=== PATIENT | female | born 1990 | race Caucasian/White ===

== ENCOUNTER 2017-01-26 19:29 | Emergency (ER) ==
[2017-01-26 19:36] VITALS: BMI 54.8
[2017-01-26] MEDS ORDERED: TORADOL IM STA (20:07)
--- NOTE | 2017-01-26 20:39 | ED.PDOC ---
General ED Provider: Dr. KEVIN TSAI Chief Complaint: Abdominal Pain Stated Complaint: Lower abdominal pain for 3-4 days, no nausea or vomiting. no injury. Had c -section in JUNE 2016 Time Seen by Physician: 20:37 Mode of Arrival: Walk-In Information Source: Patient Primary Care Provider: SAGAR BONILLA APRN Nursing and Triage Documentation Reviewed and Agree: Yes Reviewed sepsis parameters & appropriate labs ordered?: Yes System Inflammatory Response Syndrome: Not Applicable Sepsis Protocol: For patient's 13 years and over: Temp is 96.8 and below OR 101 and greater Pulse >90 BPM Resp >20/minute Acutely Altered Mental Status Are patient's symptoms suggestive of a new infection, such as: -Pneumonia -Skin, Soft Tissue -Endocarditis -UTI -Bone, Joint Infection -Implantable Device -Acute Abdominal Infection -Wound Infection -Meningitis -Blood Stream Catheter Infection -Unknown GI Complaint Exam - Abdominal Pain Complaint/Exam Onset: Gradual Symptoms Are: Still present Timing: Constant Initial Severity: Moderate Current Severity: Moderate Location of Pain: Suprapubic Character: Reports: Aching, Throbbing Aggravating: Reports: Movement Alleviating: Reports: None Associated Signs and Symptoms: Denies: Diaphoresis, Fever, Cough, Chest pain, Dizziness, Back pain, Constipation, Blood in stool, Dysuria, Urinary frequency, Decreased urine output, Decreased appetite, Vaginal bleeding, Vaginal discharge , Nausea, Vomiting, Diarrhea, Sore throat, Decreased activity AAA Risk Factors: Reports: None Cardiac Risk Factors: Reports: None Ectopic Risk Factors: Reports: None Ovarian Torsion Risk Factors: Reports: None Surgical Obstruction Risk Factors: Reports: None Related Surgical History: Reports: None Patient Rh Status: Unknown Abdominal Findings: Absent: Pulsatile mass, Abdominal distention, Unequal femoral pulses Differential Diagnoses: UTI, Ovarian Cyst, PID Review of Systems - Review Of Systems Constitutional: Reports: No symptoms Eyes: Reports: No symptoms Ears, Nose, Mouth, Throat: Reports: No symptoms Respiratory: Reports: No symptoms Cardiac: Reports: No symptoms GI: Reports: Abdominal pain : Reports: No symptoms Musculoskeletal: Reports: No symptoms Skin: Reports: No symptoms Neurological: Reports: No symptoms Endocrine: Reports: No symptoms Hematologic/Lymphatic: Reports: No symptoms All Other Systems: Reviewed and Negative Past Medical History - Past Medical History Previously Healthy: Yes Endocrine: Reports: None Cardiovascular: Reports: None, Hypertension Respiratory: Reports: None Hematological: Reports: None Gastrointestinal: Reports: Other (CHRONIC ABDOMINAL PAIN ) Genitourinary: Reports: None Neuro/Psych: Reports: None Musculoskeletal: Reports: None Cancer: Reports: None Last Menstrual Period: 11/15/16 - Surgical History General Surgical History: Reports: Cholecystectomy - Family History Family History: Reports: None - Social History Smoking Status: Current every day smoker, Light tobacco smoker Smoking Cessation Counseling Time: > 3 min - 10 min Hx Substance Use: No Alcohol Screening: Occasionally - Immunizations Tetanus Shot up to Date: No Physical Exam - Physical Exam Appearance: Well-appearing, No pain distress, Well-nourished Eyes: ROBERT, EOMI, Conjunctiva clear ENT: Ears normal, Nose normal, Oropharynx normal Respiratory: Airway patent, Breath sounds clear, Breath sounds equal, Respirations nonlabored Cardiovascular: RRR, Pulses normal, No rub, No murmur GI/: Soft, Nontender, No masses, Bowel sounds normal, No Organomegaly, Tender Musculoskeletal: Normal strength, ROM intact, No edema, No calf tenderness Skin: Warm, Dry, Normal color Neurological: Sensation intact, Motor intact, Reflexes intact, Cranial nerves intact, Alert, Oriented Psychiatric: Affect appropriate, Mood appropriate Critical Care Note - Critical Care Note Total Time (mins): 20 Course - Course Orders, Labs, Meds: Lab Review 01/26/17 01/26/17 19:53 19:53 Urine Color Yellow Urine Clarity Clear Urine pH 6.0 Ur Specific [place] 1.025 Urine Protein Negative Urine Glucose (UA) Negative Urine Ketones Negative Urine Blood Trace-lysed Urine Nitrite Negative Urine Bilirubin Negative Urine Urobilinogen 0.2 Ur Leukocyte Esterase Negative Urine Microscopic RBC 2-5 Urine Microscopic WBC 0-2 Ur Squamous Epith Cells 10-20 Amorphous Sediment Trace Urine Bacteria Trace Urine Mucus 1+ Urine Test Negative Orders Category Date Time Status UA [URINALYSIS C & S IF INDICATED] Stat LAB 01/26/17 19:53 Completed URINE Stat LAB 01/26/17 19:53 Completed Ketorolac Tromethamine [Toradol] MEDS 01/26/17 20:07 Discontinued 30 mg IM ONCE STA CT ABDOMEN/PELVIS WO CONTRAST Stat RADS 01/26/17 20:07 Completed Medications Discontinued Medications Generic Name Dose Route Start Last Admin Trade Name Freq PRN Reason Stop Dose Admin Ketorolac Tromethamine 30 mg 01/26/17 20:07 01/26/17 20:18 Toradol IM 01/26/17 20:08 30 mg ONCE STA Administration Vital Signs: Temp Pulse Resp BP Pulse Ox 01/26/17 21:15 84 124/94 H 97 01/26/17 21:04 97.9 F 89 20 121/74 97 01/26/17 19:30 99.6 F 100 H 24 172/113 H 97 Departure - Departure Time of Disposition: 07:40 Disposition: HOME SELF-CARE Discharge Problem: Abdominal pain Instructions: Abdominal Pain (ED) Condition: Good Pt referred to PMD for follow-up: Yes Additional Instructions: Increase hydration Needs f./u with PMD Allergies/Adverse Reactions: Allergies No Known Allergies Allergy (Verified 08/19/15 15:56) Home Medications: Ambulatory Orders 1 [No Reported Medications] 08/19/15 Disposition Discussed With: Patient, Family
[2017-01-26 21:37] VITALS: BP 124/94; TEMP 97.9
--- NOTE | 2017-01-26 21:48 | CT ---
EXAM: CT scan abdomen pelvis without contrast HISTORY: Abdominal pain COMPARISON: CT scan abdomen pelvis 05/25/2015 FINDINGS: Contiguous axial images obtained through the abdomen pelvis without contrast utilizing 3-m m collimation. Sagittal and coronal reconstructions were imaged and reviewed. There is the visualize d lung bases are clear. There has been prior cholecystectomy. The right lobe of the liver is enlarg ed which may represent a normal variant. Diffuse fatty infiltration is noted throughout the liver. The pancreas spleen and adrenal glands have normal unenhanced CT appearance. The kidneys are morphol ogically normal. There is a normal appendix. The uterus and adnexa are unremarkable.. The bone win dows reveals no evidence of lytic or blastic lesions. IMPRESSION: No acute intra-abdominal findings. Enlarged right lobe of liver with diffuse fatty infiltration.
== END 2017-01-26 22:00 | disposition home or self-care (01) ==
LOC: ED 19:29
DX: R10.30 Lower abdominal pain, unspecified (principal); I10 Essential (primary) hypertension; F17.210 Nicotine dependence, cigarettes, uncomplicated
CPT/HCPCS: 81001; 81025; 96372; 99283

== ENCOUNTER 2018-01-30 20:19 | Emergency (ER) ==
[2018-01-30 20:29] VITALS: TEMP 98.6; BMI 55.7
[2018-01-30 21:30] VITALS: BP 142/89
--- NOTE | 2018-01-30 21:31 | ED.PDOC ---
General ED Provider: Dr. ROSA MORE Chief Complaint: Hypertension Stated Complaint: my blood pressure is high Time Seen by Physician: 21:15 Mode of Arrival: Walk-In Information Source: Patient Exam Limitations: No limitations Primary Care Provider: SAGAR BONILLA APRN Nursing and Triage Documentation Reviewed and Agree: Yes Does patient meet sepsis criteria?: No If yes, has appropriate treatment been initiated?: No System Inflammatory Response Syndrome: Not Applicable Sepsis Protocol: For patient's 13 years and over: Temp is 96.8 and below OR 101 and greater Pulse >90 BPM Resp >20/minute Acutely Altered Mental Status Are patient's symptoms suggestive of a new infection, such as: -Pneumonia -Skin, Soft Tissue -Endocarditis -UTI -Bone, Joint Infection -Implantable Device -Acute Abdominal Infection -Wound Infection -Meningitis -Blood Stream Catheter Infection -Unknown Review of Systems - Review Of Systems Constitutional: Reports: No symptoms Eyes: Reports: No symptoms Ears, Nose, Mouth, Throat: Reports: No symptoms Respiratory: Reports: No symptoms Cardiac: Reports: No symptoms GI: Reports: No symptoms : Reports: No symptoms Musculoskeletal: Reports: No symptoms Skin: Reports: No symptoms Neurological: Reports: Anxiety Endocrine: Reports: No symptoms Hematologic/Lymphatic: Reports: No symptoms All Other Systems: Reviewed and Negative Past Medical History - Past Medical History Previously Healthy: Yes Endocrine: Reports: None Cardiovascular: Reports: Hypertension Respiratory: Reports: None Hematological: Reports: None Gastrointestinal: Reports: Other (CHRONIC ABDOMINAL PAIN ) Genitourinary: Reports: None Neuro/Psych: Reports: None Musculoskeletal: Reports: None Cancer: Reports: None Last Menstrual Period: 1 month Other Pertinent Past Medical History: Obesity - Surgical History General Surgical History: Reports: Cholecystectomy - Family History Family History: Reports: None - Social History Smoking Status: Current every day smoker, Light tobacco smoker Hx Substance Use: No Alcohol Screening: Occasionally - Immunizations Tetanus Shot up to Date: No Physical Exam - Physical Exam Appearance: Well-appearing, No pain distress, Obese Eyes: ROBERT, EOMI, Conjunctiva clear ENT: Nose normal, Oropharynx normal Neck: Supple Respiratory: Airway patent, Breath sounds clear, Breath sounds equal, Respirations nonlabored Cardiovascular: RRR, Pulses normal, No rub, No murmur Musculoskeletal: Normal strength, ROM intact, No edema, No calf tenderness Skin: Warm, Dry, Normal color Neurological: Sensation intact, Motor intact, Cranial nerves intact, Alert, Oriented Psychiatric: Anxious Re-Evaluation - Re-Evaluation Time of Re-Evaluation: 21:30 Status: Improved Vital Signs Stable: Yes (BP 148/89) Critical Care Note - Critical Care Note Total Time (mins): 0 Course - Course Vital Signs: Temp Pulse Resp BP Pulse Ox 01/30/18 21:00 90 22 138/94 H 99 01/30/18 20:45 97 H 18 132/92 H 98 01/30/18 20:30 98 H 148/100 H 99 01/30/18 20:25 93 H 19 139/93 H 01/30/18 20:20 98.6 F 103 H 20 160/99 H 95 Departure - Departure Time of Disposition: 21:30 Disposition: HOME SELF-CARE Discharge Problem: Elevated blood pressure reading, Anxiety and depression Instructions: Anxiety (ED), Hypertension (ED) Condition: Stable Pt referred to PMD for follow-up: Yes IPMP verified?: No Additional Instructions: Monitor your blood pressure at home Follow up with PCP in 3 days take Hydroxyzine as needed for anxiety salt intake Loose weight Exercise daily decrease stress Quit smoking Prescriptions: Hydroxyzine HCl [Atarax] 25 mg PO TID PRN #25 tablet PRN Reason: Anxiety Allergies/Adverse Reactions: Allergies No Known Allergies Allergy (Verified 01/21/18 17:57) Home Medications: Ambulatory Orders Hydroxyzine HCl [Atarax] 25 mg PO TID PRN #25 tablet 01/30/18
== END 2018-01-30 21:40 | disposition home or self-care (01) ==
LOC: ED 20:19
DX: I10 Essential (primary) hypertension (principal); F41.9 Anxiety disorder, unspecified; F32.9 Major depressive disorder, single episode, unspecified; F17.210 Nicotine dependence, cigarettes, uncomplicated
CPT/HCPCS: 99283

== ENCOUNTER 2018-03-08 15:13 | Emergency (ER) | payer OTHER ==
[2018-03-08 15:23] VITALS: BP 136/90; TEMP 98.7; BMI 54.8
== END 2018-03-08 18:35 | disposition left against medical advice (07) ==
LOC: ED 15:13
DX: K92.1 Melena (principal); R42 Dizziness and giddiness; R10.30 Lower abdominal pain, unspecified; K62.89 Other specified diseases of anus and rectum

== ENCOUNTER 2018-04-15 14:25 | Outpatient (CLI) | END 2018-04-15 14:26 | disposition home or self-care (01) | LOC: RHC-LAB 14:25 → FCC-LAB 14:26 | PROVIDERS: ATTEND Family Medicine | DX: R68.89 Other general symptoms and signs (principal) | CPT/HCPCS: 87502; 87651 ==

== ENCOUNTER 2018-05-12 17:39 | Emergency (ER) ==
[2018-05-12 17:42] VITALS: BP 149/92; TEMP 103.1; BMI 57.2
--- NOTE | 2018-05-12 18:08 | ED.PDOC ---
General ED Provider: Dr. JORGE CHAMORRO Chief Complaint: Cough Stated Complaint: cough sore throat flu like symptoms Time Seen by Physician: 17:40 Mode of Arrival: Walk-In Information Source: Patient Exam Limitations: No limitations Primary Care Provider: VERONICA KEMP Nursing and Triage Documentation Reviewed and Agree: Yes Does patient meet sepsis criteria?: No System Inflammatory Response Syndrome: Not Applicable Sepsis Protocol: For patient's 13 years and over: Temp is 96.8 and below OR 101 and greater Pulse >90 BPM Resp >20/minute Acutely Altered Mental Status Are patient's symptoms suggestive of a new infection, such as: -Pneumonia -Skin, Soft Tissue -Endocarditis -UTI -Bone, Joint Infection -Implantable Device -Acute Abdominal Infection -Wound Infection -Meningitis -Blood Stream Catheter Infection -Unknown EENT Complaint Exam - Throat Complaint/Exam Symptoms Are: Still present Timimg: Intermittent Initial Severity: Mild Current Severity: Mild Alleviating: Reports: None Associated Signs and Symptoms: Reports: Fever, Chills, Cough, Nasal congestion. Denies: Dysphagia, Drooling, Foreign body sensation, Wheezing, Hoarseness, Sinus discomfort, Difficulty breathing, Lethargy, Irritability, Decreased activity, Vomiting, Diarrhea, Decreased hearing, Ear drainage Uvula Midline: Yes Megan-tonsillar Fluctuence: No Scarlatinaform Rash Present: No Lesions: Absent: Lip, Gums, Tongue, Buccal Mucosa, Pharynx Exanthem: Absent: Lip, Buccal Mucosa, Pharynx Vesicles: Absent: Lip, Gums, Tongue, Buccal Mucosa, Pharynx Stridor Present: No Sinus Tenderness Present: No Tonsillar Hypertrophy Present: No Tonsillar Exudate Present: No Megan-tonsillar Swelling Present: No Adenopathy Present: No Splenomegaly Present: No Review of Systems - Review Of Systems Constitutional: Reports: Chills, Fever, Malaise, Loss of appetite Eyes: Reports: No symptoms Ears, Nose, Mouth, Throat: Reports: No symptoms Respiratory: Reports: Cough Cardiac: Reports: No symptoms GI: Reports: No symptoms : Reports: No symptoms Musculoskeletal: Reports: No symptoms Skin: Reports: No symptoms Neurological: Reports: No symptoms Endocrine: Reports: No symptoms Hematologic/Lymphatic: Reports: No symptoms All Other Systems: Reviewed and Negative Past Medical History - Past Medical History Previously Healthy: Yes Endocrine: Reports: None Cardiovascular: Reports: Hypertension Respiratory: Reports: None Hematological: Reports: None Gastrointestinal: Reports: Other (CHRONIC ABDOMINAL PAIN ) Genitourinary: Reports: None Neuro/Psych: Reports: None Musculoskeletal: Reports: None Cancer: Reports: None Last Menstrual Period: irregular Other Pertinent Past Medical History: Obesity - Surgical History General Surgical History: Reports: Cholecystectomy - Family History Family History: Reports: None - Social History Smoking Status: Light tobacco smoker, Current every day smoker Hx Substance Use: No Alcohol Screening: Occasionally Physical Exam - Physical Exam Appearance: Well-appearing, No pain distress, Well-nourished Eyes: ROBERT, EOMI, Conjunctiva clear ENT: Erythema Respiratory: Rhonchi Cardiovascular: RRR, Pulses normal, No rub, No murmur GI/: Soft, Nontender, No masses, Bowel sounds normal, No Organomegaly Musculoskeletal: Normal strength, ROM intact, No edema, No calf tenderness Skin: Warm, Dry, Normal color Neurological: Sensation intact, Motor intact, Reflexes intact, Cranial nerves intact, Alert, Oriented Psychiatric: Affect appropriate, Mood appropriate Critical Care Note - Critical Care Note Total Time (mins): 0 Course - Course Orders, Labs, Meds: Orders Category Date Time Status FLU A/B MOLECULAR Stat LAB 05/12/18 17:49 Ordered RAPID STREP SCREEN [MOLECULAR GROUP A STREP] Stat LAB 05/12/18 17:48 Ordered Vital Signs: Temp Pulse Resp BP Pulse Ox 05/12/18 17:39 103.1 F H 128 H 20 149/92 H 93 L Departure - Departure Time of Disposition: 18:07 Disposition: HOME SELF-CARE Discharge Problem: Cough Instructions: Pharyngitis (ED), Acute Bronchitis (ED), Viral Syndrome (ED) Condition: Good Pt referred to PMD for follow-up: Yes IPMP verified?: No Additional Instructions: Please call your Family Physician as soon as possible to schedule a follow-up appointment. Prescriptions: Amoxicillin 500 mg PO Q6HR #30 tablet Allergies/Adverse Reactions: Allergies No Known Allergies Allergy (Verified 05/12/18 17:42) Home Medications: Ambulatory Orders Amoxicillin 500 mg PO Q6HR #30 tablet 05/12/18
[2018-05-12] MEDS ORDERED: TYLENOL PO STA (18:09)
== END 2018-05-12 18:41 | disposition home or self-care (01) ==
LOC: ED 17:39
DX: R05 Cough (principal); J02.9 Acute pharyngitis, unspecified; R68.89 Other general symptoms and signs; F17.210 Nicotine dependence, cigarettes, uncomplicated
CPT/HCPCS: 87502; 87651; 99283

== ENCOUNTER 2018-06-03 08:25 | Emergency (ER) ==
[2018-06-03 08:30] VITALS: BP 135/85; TEMP 98.4; BMI 56.7
--- NOTE | 2018-06-03 09:43 | ED.PDOC ---
General ED Provider: Dr. JORGE CHAMORRO Chief Complaint: Abdominal Pain Stated Complaint: ABDOMINAL PAIN Time Seen by Physician: 08:30 ( SEEM WITH JOE AT ALL TIMES ) Mode of Arrival: Walk-In Information Source: Patient Exam Limitations: No limitations Primary Care Provider: VERONICA KEMP Nursing and Triage Documentation Reviewed and Agree: Yes Does patient meet sepsis criteria?: No System Inflammatory Response Syndrome: Not Applicable Sepsis Protocol: For patient's 13 years and over: Temp is 96.8 and below OR 101 and greater Pulse >90 BPM Resp >20/minute Acutely Altered Mental Status Are patient's symptoms suggestive of a new infection, such as: -Pneumonia -Skin, Soft Tissue -Endocarditis -UTI -Bone, Joint Infection -Implantable Device -Acute Abdominal Infection -Wound Infection -Meningitis -Blood Stream Catheter Infection -Unknown GI Complaint Exam - Abdominal Pain Complaint/Exam Onset: Gradual Duration: 36 HRS Symptoms Are: Still present Timing: Intermittent Initial Severity: Mild Current Severity: Mild Location of Pain: Diffuse Character: Reports: Aching Aggravating: Reports: None Alleviating: Reports: None Associated Signs and Symptoms: Reports: Nausea, Vomiting, Diarrhea (DIARRHEA X 6 VOMITING X 2 DURING THE PAST 38 HRS ) AAA Risk Factors: Reports: None Cardiac Risk Factors: Reports: None Ectopic Risk Factors: Reports: None Ovarian Torsion Risk Factors: Reports: None Surgical Obstruction Risk Factors: Reports: None Related Surgical History: Reports: None Patient Rh Status: Unknown Abdominal Findings: Present: None Differential Diagnoses: Gastroenteritis (FATTY LIVER ) Quality Indicators for AMI: EKG in 10min. Quality Indicators for Cardiac Chest Pain: EKG in 10min. Review of Systems - Review Of Systems Constitutional: Reports: No symptoms Eyes: Reports: No symptoms Ears, Nose, Mouth, Throat: Reports: No symptoms Respiratory: Reports: No symptoms Cardiac: Reports: No symptoms GI: Reports: Abdominal pain, Diarrhea, Vomiting : Reports: No symptoms Musculoskeletal: Reports: No symptoms Skin: Reports: No symptoms Neurological: Reports: No symptoms Endocrine: Reports: No symptoms Hematologic/Lymphatic: Reports: No symptoms All Other Systems: Reviewed and Negative Past Medical History - Past Medical History Previously Healthy: Yes Endocrine: Reports: None Cardiovascular: Reports: Hypertension Respiratory: Reports: None Hematological: Reports: None Gastrointestinal: Reports: Other (CHRONIC ABDOMINAL PAIN ) Genitourinary: Reports: None Neuro/Psych: Reports: None Musculoskeletal: Reports: None Cancer: Reports: None Last Menstrual Period: ended 2-3 days ago but was 70 days late Other Pertinent Past Medical History: Obesity - Surgical History General Surgical History: Reports: Cholecystectomy - Family History Family History: Reports: None - Social History Smoking Status: Light tobacco smoker, Current every day smoker Hx Substance Use: No Alcohol Screening: Occasionally Physical Exam - Physical Exam Appearance: Well-appearing, No pain distress, Well-nourished Eyes: ROBERT, EOMI, Conjunctiva clear ENT: Ears normal, Nose normal, Oropharynx normal Respiratory: Airway patent, Breath sounds clear, Breath sounds equal, Respirations nonlabored Cardiovascular: RRR, Pulses normal, No rub, No murmur GI/: Soft, Nontender, No masses, Bowel sounds normal, No Organomegaly Musculoskeletal: Normal strength, ROM intact, No edema, No calf tenderness Skin: Warm, Dry, Normal color Neurological: Sensation intact, Motor intact, Reflexes intact, Cranial nerves intact, Alert, Oriented Psychiatric: Affect appropriate, Mood appropriate Re-Evaluation - Re-Evaluation Time of Re-Evaluation: 09:43 Status: Improved Vital Signs Stable: Yes Pain Level: 0 Appearance: NAD Lungs: Clear Skin: Warm and Dry CV: RRR Critical Care Note - Critical Care Note Total Time (mins): 0 Course - Course Hematology/Chemistry: 06/03/18 08:58 06/03/18 08:58 Orders, Labs, Meds: Lab Review 06/03/18 06/03/18 06/03/18 08:58 08:58 08:58 WBC 12.23 H RBC 4.58 Hgb 13.4 Hct 40.1 MCV 87.6 MCH 29.3 MCHC 33.4 RDW Coeff of [place] 13.3 Plt Count 325 Immature Gran % (Auto) 0.8 Neut % (Auto) 71.8 Lymph % (Auto) 20.8 [place] % (Auto) 5.0 Eos % (Auto) 1.4 Baso % (Auto) 0.2 Immature Gran # (Auto) 0.1 Neut # (Auto) 8.8 H Lymph # (Auto) 2.5 [place] # (Auto) 0.6 Eos # (Auto) 0.2 Baso # (Auto) 0.0 Sodium 138.0 Potassium 3.79 Chloride 106.2 Carbon Dioxide 25.0 Anion Gap 10.59 BUN 8.1 Creatinine 0.52 L Estimated GFR (MDRD) 138.00 BUN/Creatinine Ratio 15.57 Glucose 137.7 H Calcium 8.71 Total Bilirubin 0.31 AST 76.6 H ALT 39.2 H Alkaline Phosphatase 73.9 Total Protein 6.72 Albumin 4.10 Globulin 2.62 Albumin/Globulin Ratio 1.56 Amylase 50.0 Lipase 71.4 Urine Color Yellow Urine Clarity Clear Urine pH 5.5 Ur Specific [place] >=1.030 Urine Protein Negative Urine Glucose (UA) Negative Urine Ketones Negative Urine Blood 1+ Urine Nitrite Negative Urine Bilirubin Negative Urine Urobilinogen 0.2 Ur Leukocyte Esterase Negative Urine Microscopic RBC 5-10 Ur Squamous Epith Cells 10-20 Calcium Oxalate Crystal Trace Orders Category Date Time Status AMYLASE Stat LAB 06/03/18 08:58 Completed CBC W/ AUTO DIFF Stat LAB 06/03/18 08:58 Completed COMPREHENSIVE METABOLIC PANEL Stat LAB 06/03/18 08:58 Completed LIPASE Stat LAB 06/03/18 08:58 Completed URINALYSIS C & S IF INDICATED Stat LAB 06/03/18 08:58 Completed URINE Stat LAB 06/03/18 08:[address] ABDOMEN/PELVIS WO CONTRAST Stat RADS 06/03/18 08:50 Completed Vital Signs: Temp Pulse Resp BP Pulse Ox 06/03/18 08:25 98.4 F 110 H 20 135/85 96 Departure - Departure Time of Disposition: 10:14 Disposition: HOME SELF-CARE Discharge Problem: Abdominal pain, Fatty liver Instructions: Acute Diarrhea (ED), Abdominal Pain (ED), Non-Alcoholic Fatty Liver Disease (ED) Condition: Good Pt referred to PMD for follow-up: Yes IPMP verified?: No Additional Instructions: Please call your Family Physician as soon as possible to schedule a follow-up appointment. Allergies/Adverse Reactions: Allergies No Known Allergies Allergy (Verified 06/03/18 08:30) Disposition Discussed With: Patient
--- NOTE | 2018-06-03 10:10 | CT ---
EXAM: CT of the abdomen pelvis without contrast History: Diarrhea and vomiting, upper abdominal pain. Comparison: CT abdomen pelvis 01/26/2017 Technique: Multiplanar CT images through the abdomen pelvis were obtained without the administration of IV contrast Findings: Lung bases are clear. No acute osseous abnormalities. Status post cholecystectomy. Enlarged fatty liver. Spleen is unremarkable. No renal stones and no hydronephrosis. No peripancreatic inflammation. Adrenal glands are unremarkable. No ureteral calcu li. The appendix is normal. No bowel obstruction. Small fat-containing umbilical hernia. No free air and no ascites. No bladder wall thickening. Adnexal structures appear appropriate for patient's age. No perirectal inflammation. Bladder wall is not thickened. Impression: 1. No acute intra-abdominal or pelvic process. 2. Enlarged fatty liver. 3. Small fat-containing umbilical hernia
[2018-06-03 11:01] LABS: URINE PREGNANCY TEST NEGATIVE (NEGATIVE)
== END 2018-06-03 10:26 | disposition home or self-care (01) ==
LOC: ED 08:25
DX: R10.9 Unspecified abdominal pain (principal); K76.0 Fatty (change of) liver, not elsewhere classified; R19.7 Diarrhea, unspecified; R11.10 Vomiting, unspecified; R94.5 Abnormal results of liver function studies; I10 Essential (primary) hypertension; F17.210 Nicotine dependence, cigarettes, uncomplicated
CPT/HCPCS: 36415; 80053; 80074; 81001; 81025; 82150; 83690; 85025; 99283

== ENCOUNTER 2018-08-16 08:07 | Observation (INO) ==
[2018-08-16] MEDS ORDERED: ASPIRIN CHEWABLE PO STA (08:27)
[2018-08-16] MEDS ORDERED: SODIUM CHLORIDE 1,000 ML IV STA (08:28)
--- NOTE | 2018-08-16 10:26 | CT ---
EXAM: CTA CHEST (PE PROTOCOL) HISTORY: Chest pain TECHNIQUE: CTA chest with intravenous contrast. Multiplanar images were provided with 3-D reconstru ctions. 100 mL Omnipaque. COMPARISON: None FINDINGS: No pulmonary arterial filling defect. Normal heart size. No pericardial effusion. Thoracic aorta a ppears grossly normal. Lungs are clear. Normal vascularity. There is no pneumothorax or pleural fluid. Bones reveal early degenerative endplate changes of the lower thoracic spine. Liver is fatty and pro bably enlarged. IMPRESSION: 1. No pulmonary arterial thromboembolism is identified. 2. Lungs are clear. 3. Liver is fatty and probably enlarged.
--- NOTE | 2018-08-16 10:46 | ED.PDOC ---
General ED Provider: Dr. JORGE CHAMORRO Chief Complaint: Chest Pain Stated Complaint: chest pain Time Seen by Physician: 08:13 (seen with RN AT BEDSIDE AT ALL TIMES ) Mode of Arrival: Walk-In Information Source: Patient Exam Limitations: No limitations Primary Care Provider: VERONICA KEMP Nursing and Triage Documentation Reviewed and Agree: Yes Does patient meet sepsis criteria?: No System Inflammatory Response Syndrome: Not Applicable Sepsis Protocol: For patient's 13 years and over: Temp is 96.8 and below OR 101 and greater Pulse >90 BPM Resp >20/minute Acutely Altered Mental Status Are patient's symptoms suggestive of a new infection, such as: -Pneumonia -Skin, Soft Tissue -Endocarditis -UTI -Bone, Joint Infection -Implantable Device -Acute Abdominal Infection -Wound Infection -Meningitis -Blood Stream Catheter Infection -Unknown Cardiovascular Complaint Exam - Chest Pain Complaint/Exam Onset: Gradual Duration: 1 DAY Symptoms Are: Resolved Timing: Intermittent Length of Chest Pain Episodes: 30 MIN Initial Severity: Mild Current Severity: Mild Location: Reports: Discrete Pain Radiates: Reports: Left shoulder Character: Reports: Dull Aggravating: Reports: None Alleviating: Reports: Spontaneous resolution Associated Signs and Symptoms: Reports: Cough, Short of air. Denies: Diaphoresis, Nausea, Vomiting, Fever, Palpitations, Hemoptysis, Back pain, Abdominal pain, Dizziness, Calf pain, Calf swelling Related Surgical History: Reports: None History of Healthcare-Acquired Pneumonia: Reports: No AMI/ACS Risk Factors: Reports: None TAD Risk Factors: Reports: None Pulmonary Embolism Risk Factors: Reports: None Prior Care for this Complaint: No Recent Stress Test: No Recent Echo/LV Function: No JVD Present: No Subcutaneous Emphysema Present: No Diminshed Breath Sounds: No Reproducible Chest Wall Pain: No Bilateral Pulses Present: No Unequal Pulses Noted: No If Risk Factors for AMI/ACS Consider: EKG, Cardiac Enzymes Differential Diagnoses: Stable Angina, Lower Resp. Infection Quality Indicators For Acute OK or Cardiac Chest Pain: EKG in 10min. Review of Systems - Review Of Systems Constitutional: Reports: No symptoms Eyes: Reports: No symptoms Ears, Nose, Mouth, Throat: Reports: No symptoms Respiratory: Reports: No symptoms Cardiac: Reports: Chest pain GI: Reports: No symptoms : Reports: No symptoms Musculoskeletal: Reports: No symptoms Skin: Reports: No symptoms Neurological: Reports: No symptoms Endocrine: Reports: No symptoms Hematologic/Lymphatic: Reports: No symptoms All Other Systems: Reviewed and Negative Past Medical History - Past Medical History Previously Healthy: Yes Endocrine: Reports: None Cardiovascular: Reports: Hypertension Respiratory: Reports: None Hematological: Reports: None Gastrointestinal: Reports: Other (CHRONIC ABDOMINAL PAIN ) Genitourinary: Reports: None Neuro/Psych: Reports: None Musculoskeletal: Reports: None Cancer: Reports: None Last Menstrual Period: 10 DAYS Other Pertinent Past Medical History: Obesity - Surgical History General Surgical History: Reports: Cholecystectomy - Family History Family History: Reports: None - Social History Smoking Status: Vaping Hx Substance Use: No Alcohol Screening: None Physical Exam - Physical Exam Appearance: Well-appearing, No pain distress, Well-nourished Eyes: ROBERT, EOMI, Conjunctiva clear ENT: Ears normal, Nose normal, Oropharynx normal Respiratory: Airway patent, Breath sounds clear, Breath sounds equal, Respirations nonlabored Cardiovascular: RRR, Pulses normal, No rub, No murmur GI/: Soft, Nontender, No masses, Bowel sounds normal, No Organomegaly Musculoskeletal: Normal strength, ROM intact, No edema, No calf tenderness Skin: Warm, Dry, Normal color Neurological: Sensation intact, Motor intact, Reflexes intact, Cranial nerves intact, Alert, Oriented Psychiatric: Affect appropriate, Mood appropriate Interpretation - Radiology Interpretation Radiology Interpretation By: Radiologist Radiology Results: No acute changes - Cargo Operations Agent Time of Cargo Operations Agent Interpretation: 08:34 Rate: Normal Rhythm: Sinus Ectopy: None - EKG Interpretation Rate: Normal Rhythm: Sinus Ectopy: None [place]: [place] ST Segment: Normal Time of EKG #2: 10:54 Rate: Normal Rhythm: Sinus Ectopy: None [place]: [place] ST Segment: Normal EKG Comparison: No significant changes Re-Evaluation - Re-Evaluation Time of Re-Evaluation: 10:00 Status: Improved Vital Signs Stable: Yes Pain Level: 0 Appearance: NAD Lungs: Clear Skin: Warm and Dry Neuro: Alert and Oriented X3 CV: RRR - Re-Evaluation Time of Re-Evaluation: 11:09 Status: Improved Vital Signs Stable: Yes Pain Level: 0 Appearance: NAD Skin: Warm and Dry Neuro: Alert and Oriented X3 CV: RRR Physician Notification - Case Discussed Physician Notified: PMD Time of Notification: 11:00 Admit/Transition Orders Entered by ED Provider: Yes Admit To: Inpatient, Observation Critical Care Note - Critical Care Note Total Time (mins): 0 Course - Course Hematology/Chemistry: 08/16/18 08:40 08/16/18 08:40 Orders, Labs, Meds: Lab Review 08/16/18 08/16/18 08/16/18 08:40 08:40 08:40 WBC 11.25 H RBC 4.69 Hgb 14.2 Hct 41.9 MCV 89.3 MCH 30.3 MCHC 33.9 RDW Coeff of Soniya 12.8 Plt Count 366 Immature Gran % (Auto) 0.5 Neut % (Auto) 63.1 Lymph % (Auto) 29.9 Bond % (Auto) 4.4 Eos % (Auto) 1.6 Baso % (Auto) 0.5 Immature Gran # (Auto) 0.1 Neut # (Auto) 7.1 H Lymph # (Auto) 3.4 Bond # (Auto) 0.5 Eos # (Auto) 0.2 Baso # (Auto) 0.1 Sodium 140.1 Potassium 4.26 Chloride 104.2 Carbon Dioxide 26.3 Anion Gap 13.86 BUN 7.8 Creatinine 0.62 Estimated GFR (MDRD) 113.00 BUN/Creatinine Ratio 12.58 Glucose 137.7 H Calcium 8.81 Total Bilirubin 0.38 AST 63.3 H ALT 43.8 H Alkaline Phosphatase 69.5 Total Creatine Kinase 42.3 Troponin I < 0.012 Total Protein 6.78 Albumin 3.92 Globulin 2.86 Albumin/Globulin Ratio 1.37 Serum , Qual Negative Urine Opiates Screen Ur Oxycodone Screen Urine Methadone Screen Ur Propoxyphene Screen Ur Barbiturates Screen U Tricyclic Antidepress Ur Phencyclidine Scrn Ur Amphetamine Screen U Methamphetamines Scrn U Benzodiazepines Scrn Urine Cocaine Screen U Cannabinoids Screen 08/16/18 10:10 WBC RBC Hgb Hct MCV MCH MCHC RDW Coeff of Soniya Plt Count Immature Gran % (Auto) Neut % (Auto) Lymph % (Auto) Bond % (Auto) Eos % (Auto) Baso % (Auto) Immature Gran # (Auto) Neut # (Auto) Lymph # (Auto) Bond # (Auto) Eos # (Auto) Baso # (Auto) Sodium Potassium Chloride Carbon Dioxide Anion Gap BUN Creatinine Estimated GFR (MDRD) BUN/Creatinine Ratio Glucose Calcium Total Bilirubin AST ALT Alkaline Phosphatase Total Creatine Kinase Troponin I Total Protein Albumin Globulin Albumin/Globulin Ratio Serum , Qual Urine Opiates Screen Negative Ur Oxycodone Screen Negative Urine Methadone Screen Negative Ur Propoxyphene Screen Negative Ur Barbiturates Screen Negative U Tricyclic Antidepress Negative Ur Phencyclidine Scrn Negative Ur Amphetamine Screen Negative U Methamphetamines Scrn Negative U Benzodiazepines Scrn Negative Urine Cocaine Screen Negative U Cannabinoids Screen Negative Orders Category Date Time Status EKG-(ED ONLY) Stat CARDIO 08/16/18 08:27 Completed EKG-(ED ONLY) Stat CARDIO 08/16/18 10:42 Completed EKG-(IP & OP ONLY) DAILY CARDIO 08/17/18 06:00 Ordered EKG-(IP & OP ONLY) DAILY CARDIO 08/18/18 06:00 Ordered EKG-(IP & OP ONLY) DAILY CARDIO 08/19/18 06:00 Ordered INTAKE & OUTPUT Q8HR CARE 08/16/18 11:08 Ordered NPO REMINDER: IMAGING ONCE CARE 08/16/18 08:29 Completed VITAL SIGNS Q4HR CARE 08/16/18 11:08 Ordered REGULAR DIET DIETARY 08/16/18 Lunch Ordered ED IV/MEDIPORT/POWERPORT .ONCE EMERGENCY 08/16/18 08:28 Active CBC W/ AUTO DIFF DAILY@0600 LAB 08/17/18 06:00 Ordered CBC W/ AUTO DIFF DAILY@0600 LAB 08/18/18 06:00 Ordered CBC W/ AUTO DIFF Stat LAB 08/16/18 08:40 Completed COMPREHENSIVE METABOLIC PANEL DAILY@0600 LAB 08/17/18 06:00 Ordered COMPREHENSIVE METABOLIC PANEL DAILY@0600 LAB 08/18/18 06:00 Ordered COMPREHENSIVE METABOLIC PANEL Stat LAB 08/16/18 08:40 Completed CREATINE KINASE Q8H LAB 08/16/18 17:15 Ordered CREATINE KINASE Q8H LAB 08/17/18 01:15 Ordered CREATINE KINASE Stat LAB 08/16/18 08:40 Completed SERUM Stat LAB 08/16/18 08:40 Completed TROPONIN I Q8H LAB 08/16/18 17:15 Ordered TROPONIN I Q8H LAB 08/17/18 01:15 Ordered TROPONIN I Stat LAB 08/16/18 08:40 Completed URINE DRUG SCREEN (RAPID FOR ED) [DRUG SCREEN, URINE, LAB 08/16/18 10:10 Completed RAPID] Stat 0.9 % Sodium Chloride [Saline Flush] MEDS 08/16/18 08:28 Active 1 syr IVF PRN PRN Aspirin [Aspirin Chewable] MEDS 08/16/18 08:27 Discontinued 324 mg PO ONCE STA Buspirone HCl [Buspar] MEDS 08/16/18 10:59 Active 5 mg PO 1-2XD PRN Escitalopram Oxalate [Lexapro] MEDS 08/17/18 09:00 Active 20 mg PO DAILY Sodium Chloride 0.9% [Sodium Chloride] 1,000 ml MEDS 08/16/18 08:28 Active IV 125 mls/hr Sodium Chloride 0.9% [Sodium Chloride] 1,000 ml MEDS 08/16/18 11:30 Ordered IV 75 mls/hr CT CHEST PE PROTOCOL Stat RADS 08/16/18 08:28 Completed Medications Generic Name Dose Route Start Last Admin Trade Name Freq PRN Reason Stop Dose Admin Buspirone HCl 5 mg 08/16/18 10:59 Buspar PO 1-2XD PRN ANXIETY Escitalopram Oxalate 20 mg 08/17/18 09:00 Lexapro PO DAILY MILE Sodium Chloride 1,000 mls @ 125 mls/hr 08/16/18 08:28 08/16/18 10:33 Sodium Chloride IV 08/16/18 16:27 125 mls/hr .Q8H STA Administration Sodium Chloride 1 syr 08/16/18 08:28 Saline Flush IVF PRN PRN To flush IV Discontinued Medications Generic Name Dose Route Start Last Admin Trade Name Freq PRN Reason Stop Dose Admin Aspirin 324 mg 08/16/18 08:27 08/16/18 08:48 Aspirin Chewable PO 08/16/18 08:28 324 mg ONCE STA Administration Vital Signs: Temp Pulse Resp BP Pulse Ox 08/16/18 08:11 98.2 F 87 20 139/94 H 96 GURPREET Risk Score GURPREET Risk Score: Risk Score Odds of by 30D 0 0.1 (0.1-0.2) 1 0.3 (0.2-0.3) 2 0.4 (0.3-0.5) 3 0.7 (0.6-0.9) 4 1.2 (1.0-1.5) 5 2.2 (1.9-2.6) 6 3.0 (2.5-3.6) 7 4.8 (3.8-6.1) Departure - Departure Time of Disposition: 11:09 Disposition: PLACED OBSERVATION Discharge Problem: Chest pain Instructions: Chest Pain (ED) Condition: Good Pt referred to PMD for follow-up: Yes IPMP verified?: No Additional Instructions: Please call your Family Physician as soon as possible to schedule a follow-up appointment. Allergies/Adverse Reactions: Allergies No Known Allergies Allergy (Verified 06/03/18 08:30) Disposition Discussed With: Patient
[2018-08-16] MEDS ORDERED: BUSPAR PO PRN (10:59)
[2018-08-16] MEDS ORDERED: NON-FORMULARY MEDICATION (Buspirone Hcl [Buspirone Hcl] 5 MG) PO SCH (11:00)
[2018-08-16 12:39] VITALS: BMI 55.2
[2018-08-16] MEDS: SODIUM CHLORIDE 1,000 ML IV SCH (17:52)
[2018-08-17] MEDS ORDERED: NON-FORMULARY MEDICATION (Escitalopram Oxalate [Escitalopram Oxalate] 20 MG) PO SCH (09:00)
[2018-08-17] MEDS: LEXAPRO PO SCH (09:35)
[2018-08-17] MEDS: SODIUM CHLORIDE 1,000 ML IV SCH ×2 (09:36→23:47)
[2018-08-17] MEDS: PROTONIX PO SCH (19:36)
[2018-08-18] MEDS: SODIUM CHLORIDE 1,000 ML IV SCH (05:26)
[2018-08-18] MEDS: PROTONIX PO SCH (05:34)
[2018-08-18] MEDS: LEXAPRO PO SCH (08:37)
[2018-08-18 10:33] VITALS: BP 129/89; TEMP 98
--- NOTE | 2018-08-19 10:41 | STRESSECHO ---
Date of Test: 08/17/18 Ordering Physician: DR. 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 Reason for Exam: CHEST PAIN, MORBID OBESITY Smoking History: 10 YRS/VAPING NOW Height: 62" Weight: 302 LBS Current Medications: LEXAPRO, BUSPIRONE Resting EKG: SINUS RHYTHM/ NO ACUTE CHANGES Target Heart Rate: 161 S-T SEGMENT STAGE MPH/GRADE HEART RATE BPM BLOOD PRESSURE MMHG RHYTHM +/- ELEVATION DEPRESSION SYMPTOMS AT REST 76 BPM 118/72 MMHG SR X NONE 1 1.7/10% 154 BPM 138/62 MMHG SR X NONE 2 2.5/12% 3 3.4/14% 4 4.2/16% 5 5.0/18% Immediately After 164 BPM SR X SHORT OF AIR Minutes Post Exercise 5:00 80 BPM 122/70 MMHG SR X NONE Minutes Post Exercise DURATION OF EXERCISE: 3:08 MAXIMUM HEART RATE REACHED: 164 BPM REASON FOR TERMINATION: SHORT OF AIR 100% OXYGEN SATURATION ON ROOM AIR WITH EXERCISE METS 5.0 INTERPRETATION: 1. NO EVIDENCE OF ISCHEMIA BY ST-T WAVE 2. NO CHEST PAIN OR DISCOMFORT 3. BLOOD PRESSURE RESPONSE: NORMAL 4. NO ARRHYTHMIAS NORMAL LEFT VENTRICULAR CONTRACTILITY--RESTING AND POST EXERCISE MTDD
--- NOTE | 2018-08-19 10:45 | ECHO2D ---
Date of Exam: 08/17/18 Ordering Physician: DR. ELLEN SEAY Room # : 119 Reason for Echo: CHEST PAIN MORBID OBESITY M-Mode Normal Adult Results LV Dimensions Normal Adult Results AoV Opening excursions >1.6 >1.6 LVEDD-base- 3.5-5.8 4.2 Ao root dimensions 2.0-3.7 2.9 LVESD-base- 3.1-4.6 L. Atrium dimensions 1.9-3.8 3.9 Post. Wall thickness 0.8-1.1 1.2 IV septum (thickness) 0.7-1.2 1.2 Post. Wall excursion 0.72-1.3 NORMAL Septal motion NORMAL Systolic motion R. Ventricular cavity 1.5-2.0 NORMAL LVEF 60% 65% Paradoxical septal wall motion NORMAL 2-D : 2-D M Mode Echocardiogram was performed using apical four chamber and left parasternal long and short axis views. Mitral, tricuspid and aortic valves appear to be normal. Contractility of the left ventricle seems to be normal, so is the cavity size. Left atrial cavity size and aortic root appear to be normal. There is no pericardial effusion. There is no thrombus noted in the left ventricular or left aortic cavity. No mitral valve prolapse noted. M-MODE: MV: NORMAL AV: NORMAL TV: NORMAL PV: CHAMBER SIZE: NORMAL WALL MOTION: NORMAL PERICARDIUM: NORMAL INTERPRETATION: 1. BORDERLINE LEFT VENTRICULAR HYPERTROPHY 2. NORMAL VALVES 3. NORMAL LEFT VENTRICULAR CONTRACTILITY MTDD
--- NOTE | 2018-08-19 10:47 | ECHOSTRESS ---
Date of Exam: 08/17/18 Ordering Physician: DR. ELLEN SEAY Reason for Echo: CHEST PAIN, MORBID OBESITY, STRESS TEST--NO ISCHEMIA M-Mode Normal Adult Results LV Dimensions Normal Adult Results AoV Opening excursions >1.6 LVEDD-base- 3.5-5.8 Ao root dimensions 2.0-3.7 LVESD-base- 3.1-4.6 L. Atrium dimensions 1.9-3.8 Post. Wall thickness 0.8-1.1 IV septum (thickness) 0.7-1.2 Post. Wall excursion 0.72-1.3 Septal motion Systolic motion R. Ventricular cavity 1.5-2.0 LVEF 60% Paradoxical septal wall motion 2-D: NORMAL LEFT VENTRICULAR CONTRACTILITY--RESTING AND POST EXERCISE M-MODE: MV: AV: TV: PV: CHAMBER SIZE: WALL MOTION: NORMAL LEFT VENTRICULAR CONTRACTILITY--RESTING AND POST EXERCISE PERICARDIUM: INTERPRETATION: 1. NORMAL LEFT VENTRICULAR CONTRACTILITY--RESTING AND POST EXERCISE MTDD
--- NOTE | 2018-08-19 14:39 | DS ---
DATE OF SERVICE: 08/18/18 PATIENT IDENTIFICATION: This is a 28 year old female who presented to the emergency room on because of chest pain described by the nurse as midsternal. The pain however is at the sternal epigastric area when I asked her to point to me where the pain is. The pain is described as oppressive meaning somebody is squeezing but somebody stepping on her chest. The pain was lasting for about 30 minutes without diaphoresis or nausea. Work up in the emergency room was negative towards the cardiovascular problems. EKG was normal. Serum test was negative. The patient was admitted for observation because of the chest pain and further testing and cardiology consultation. HOSPITAL COURSE: The patient was alert and oriented times four, not dyspneic or tachypneic at the time of my examination. LUNGS: Breath sounds are diminished in both sides probably because of size. No rales and no wheezing HEART: Audible and regular with good tones. ABDOMEN: Markedly protuberant, soft with no remarkable tenderness. Bowel sounds are active. LOWER EXTREMITIES: Anterior tibials are present in both feet. No tenderness in the calf muscles. UPPER EXTREMITIES: Symmetrical and equal. Subsequent CK plus Troponin remained negative. Veterinary Technician Assistant did see the patient and scheduled tests after examination. The patient had done ambulatory stress testing on 08/17/18 and was negative for ischemia. Echocardiogram did show a thickening of the ventricular wall. The patient had a drug screen on admission and was negative for any drugs. TSH was normal 1.190 and Free T4 is 0.97. Serum test negative. Lipid panel was obtained on the second hospital day and the HDL is markedly low at 22. The triglycerides are slightly elevated at 233.7, total cholesterol 146 and LDL 78. Repeat AST and ALT is elevated, Serum and Amylase were negative. The patient did complain of an epigastric distress and Protonix was prescribed 40mg daily before the biggest meal. The patient on followup on the day of discharge claimed that the Protonix had helped very much with her epigastric distress. I did tell her again that the liver enzymes were elevated and most likely from the fatty liver. I did send however for a test to determine if there is any hepatitis. I will discuss the results on her followup visit at the office. Her blood sugar were consistently elevated 137, 138 and 131. The A1c is 5.59. I do not have the results of the fasting insulin as well as C-Peptide level. I feel that this patient has an insulin resistant syndrome. Explained that to her and that she needs to exercise meaning walking half an hour a day. She doesn't have to begin on the half hour a day but should do it incrementally. The patient appears to be receptive. I had discussed also a diet which I felt would be easier to follow in order to lose weight. The patient at discharge was alert, ambulatory, cheerful without any pain. She claimed that she feels better and is ready to go home. Her [id number] was in the room. Her vital signs at 10:00 today 08/18/18 showed a temperature 98, pulse 84, blood pressure 129/89, respiratory rate 18, oxygen saturation 98 at room air. LUNGS: Clear. Somewhat distant breath sounds HEART: Normal sinus rhythm ABDOMEN: Unremarkable LOWER EXTREMITIES: No pain or tenderness in the calf muscles. Stress test was negative for ischemia. The echocardiogram showed ventricular wall thickening otherwise unremarkable. I still do not have the reading or the report of the stress test and echocardiogram. These were obtained verbally, the results were obtained verbally with the water safety instructor. The patient is resume her previous medications. She is prescribed Protonix 40mg to be taken once a day before the biggest meal, #30. She should see me in about week at the office and should call the office this coming Sunday, tomorrow. FINAL DIAGNOSES: 1. Lower sternal epigastric pain, probably noncardiac 2. Extreme Obesity, BMI 55.2. 3. History of depression on medication PLAN: 1. The patient should also be tested for sleep studies. 2. The patient is to see me next week at the office and before if there is any concerns. 3. She is prescribed Protonix 40mg to go home to be taken one a day. TIME SPENT: GREATER THAN 30 MINUTES MTDD
--- NOTE | 2018-08-20 07:51 | CONS ---
DATE OF SERVICE: 08/18/18 CONSULT FOLLOWUP SUBJECTIVE: 28 year old white female seen on consultation for evaluation of chest pain. The patient's chest pain has subsided. REVIEW OF SYSTEMS: CONSTITUTIONAL: No night sweats. No fatigue, malaise, lethargy. No fever or chills. HEENT: Eyes: No visual changes. No eye pain. No eye discharge. ENT: No runny nose. No epistaxis. No sinus pain. No sore throat. No odynophagia. No ear pain. No congestion. RESPIRATORY: No cough, no congestion. No hemoptysis. CARDIOVASCULAR: No angina symptoms. No CHF symptoms. No atypical chest pain for CAD. No palpitations. No shortness of breath. GASTROINTESTINAL: No abdominal pain. No nausea or vomiting. No diarrhea or constipation. No hematemesis. No hematochezia. GENITOURINARY: No urgency. No frequency. No dysuria. No hematuria. No obstructive symptoms. No discharge. No pain. No significant abnormal bleeding. MUSCULOSKELETAL: No musculoskeletal pain. No joint swelling. No arthritis. NEUROLOGICAL: No headache. No neck pain. No syncope. No seizures. No dizziness. PSYCHIATRIC: Not anxious. No depression. No suicidal thoughts. No homicidal thoughts. SKIN: No rash. No lesions. No wounds. ENDOCRINE: No unexplained weight loss. No weight gain. HEMATOLOGIC/LYMPHATIC: No anemia. No purpura. No petechiae. No prolonged or excessive bleeding. No palpable lymph nodes. PHYSICAL EXAMINATION: HEENT: Head normocephalic, atraumatic. Eyes: Extraocular muscles are intact. Pupils are equal, round and reactive to light and accommodation. Ears: No lesions. Nose appeared normal. Throat: No exudate or erythema. NECK: Supple. No JVD, no carotid bruit. No lymphadenopathy or thyromegaly. LUNGS: Clear to auscultation. Percussion note normal. Chest symmetrical. HEART: Chest pain, noncardiac. S1, S2, no S3. No murmurs. No cyanosis or clubbing. No ascites. Pulses: Dorsalis pedis and posterior tibial pulses +1 to +2 bilaterally. ABDOMEN: Soft. Nontender. Bowel sounds active. No CVA tenderness. No mass felt. EXTREMITIES: No edema. Full range of motion of all extremities, equal. NEUROLOGIC: No focal deficit. Cranial nerves II through XII are grossly intact. No headache, no double vision or headache. SKIN: Not dry. Intact. Turgor - normal. LYMPHATIC: No palpable lymph nodes/no lymphedema. MUSCULOSKELETAL: Normal joints with no swelling. Muscle tone is normal. LABS: EKG reviewed all normal. Telemetry strips are all normal ASSESSMENT: 1. Chest pain noncardiac RECOMMENDATIONS: 1. Advised the patient to lose weight, She is morbidly obese. 2. Sedentary lifestyle discussed and counseling done MTDD
--- NOTE | 2018-08-20 07:52 | CONS ---
This patient was seen three times: 08/16/18: Level 5 08/17/18: Intermediate 08/18/18: Intermediate MTDD
--- NOTE | 2018-08-20 11:08 | CONS ---
DATE OF CONSULTATION: 08/16/18 REASON FOR CONSULTATION: Chest pain HISTORY OF PRESENT ILLNESS: 28 year old white female admitted through the emergency room with having chest tightness at the center of the chest up and down the sternum and sternal area. No radiation for past 24 hours. The discomfort or tightness is nonexertional. Never had this type of problem before. REVIEW OF SYSTEMS: CONSTITUTIONAL: No night sweats. Fatigue and weakness. No fever or chills. HEENT: Eyes: No visual changes. No eye pain. No eye discharge. ENT: No sinus drainage. No epistaxis. No sinus pain. No sore throat. No odynophagia. No ear pain. No congestion. RESPIRATORY: No cough, no congestion. No hemoptysis. Mild shortness of breath. CARDIOVASCULAR: No angina symptoms. No CHF symptoms. No atypical chest pain for CAD. No palpitations. No orthopnea. Chest tightness, center of the chest up and down the sternal area. Nonexertional. GASTROINTESTINAL: No abdominal pain. No nausea or vomiting. No diarrhea or constipation. No hematemesis. No hematochezia. GENITOURINARY: No urgency. No frequency. No dysuria. No hematuria. No obstructive symptoms. No discharge. No pain. No significant abnormal bleeding. MUSCULOSKELETAL: No musculoskeletal pain. No joint swelling. NEUROLOGICAL: No headache. No neck pain. No syncope. No seizures. No dizziness. PSYCHIATRIC: Not anxious. No depression. No suicidal thoughts. No homicidal thoughts. SKIN: No rash. No lesions. No wounds. ENDOCRINE: No unexplained weight loss. No weight gain. HEMATOLOGIC/LYMPHATIC: No anemia. No purpura. No petechiae. No prolonged or excessive bleeding. No palpable lymph nodes. MEDICATIONS: Risperdal Lexapro ALLERGIES: None PAST MEDICAL HISTORY/PAST SURGICAL HISTORY: Depression been on Lexapro. Primary care provider Dr. Coulter SOCIAL/PERSONAL/FAMILY HISTORY: The patient is a smoker, lately has been vaping. The patient is and has two kids Living with the . No history of drug or alcohol abuse. PHYSICAL EXAMINATION: GENERAL: The patient is oriented to time, place and person. VITAL SIGNS: Temperature 98, pulse 90, respiratory rate 20, blood pressure 130/ 80 and pulse ox 96% HEENT: Head normocephalic, atraumatic. Eyes: Extraocular muscles are intact. Pupils are equal, round and reactive to light and accommodation. Ears: No lesions. Nose appeared normal. Throat: No exudate or erythema. NECK: Supple. No JVP, no carotid bruit. No lymphadenopathy or thyromegaly. LUNGS: Decreased breath sounds. Clear to auscultation. Percussion note normal. Chest symmetrical. HEART: MPI not palpable on auscultation. S1, S2 distant, no S3. No murmurs. No cyanosis or clubbing. No ascites. Pulses: Dorsalis pedis and posterior tibial pulses +2 bilaterally. ABDOMEN: Protuberant. Soft. Nontender. Bowel sounds active. No CVA tenderness. No mass felt. EXTREMITIES: No edema. Full range of motion of all extremities, equal. NEUROLOGIC: No focal deficit. Cranial nerves II through XII are grossly intact. No headache, no double vision or headache. SKIN: Not dry. Intact. Turgor - normal. LYMPHATIC: No palpable lymph nodes/no lymphedema. MUSCULOSKELETAL: Normal joints with no swelling. Muscle tone is normal. LABS: All labs including cardiac markers are all negative. EKG sinus rhythm. No acute changes times one. Telemetry strips examined. No ST-T wave change. ASSESSMENT: 1. Chest pain, etiology unknown seems to be noncardiac. 2. Morbid obesity, BMI 55 3. History of depression RECOMMENDATIONS: 1. Lipid profile 2. T4 TSH 3. Normal Telemetry 4. Echocardiogram resting 5. Stress echo in the morning 6. Obesity discussed with the patient 7. Sedentary lifestyle discussed with the patient 8. Counseling for obesity done. 9. Advised to joint [facility], declined Thanks for referral. Will follow. LULÚ
--- NOTE | 2018-08-20 11:12 | CONS ---
DATE OF SERVICE: 08/17/18 CONSULT FOLLOWUP SUBJECTIVE: 28 year old white female seen on consultation. REVIEW OF SYSTEMS: CONSTITUTIONAL: No night sweats. No fatigue, malaise, lethargy. No fever or chills. HEENT: Eyes: No visual changes. No eye pain. No eye discharge. ENT: No runny nose. No epistaxis. No sinus pain. No sore throat. No odynophagia. No ear pain. No congestion. RESPIRATORY: No cough, no congestion. No hemoptysis. CARDIOVASCULAR: No angina symptoms. No CHF symptoms. No atypical chest pain for CAD. No palpitations. No shortness of breath. GASTROINTESTINAL: No abdominal pain. No nausea or vomiting. No diarrhea or constipation. No hematemesis. No hematochezia. GENITOURINARY: No urgency. No frequency. No dysuria. No hematuria. No obstructive symptoms. No discharge. No pain. No significant abnormal bleeding. MUSCULOSKELETAL: No musculoskeletal pain. No joint swelling. No arthritis. NEUROLOGICAL: No headache. No neck pain. No syncope. No seizures. No dizziness. PSYCHIATRIC: Not anxious. No depression. No suicidal thoughts. No homicidal thoughts. SKIN: No rash. No lesions. No wounds. ENDOCRINE: No unexplained weight loss. No weight gain. HEMATOLOGIC/LYMPHATIC: No anemia. No purpura. No petechiae. No prolonged or excessive bleeding. No palpable lymph nodes. PHYSICAL EXAMINATION: GENERAL: The patient is oriented to time, place and person. VITAL SIGNS: Temperature 97.7, pulse 88, respiratory rate 20, blood pressure 123 /85 and pulse ox 96% on room air. HEENT: Head normocephalic, atraumatic. Eyes: Extraocular muscles are intact. Pupils are equal, round and reactive to light and accommodation. Ears: No lesions. Nose appeared normal. Throat: No exudate or erythema. NECK: Supple. No JVD, no carotid bruit. No lymphadenopathy or thyromegaly. LUNGS: Clear to auscultation. Percussion note normal. Chest symmetrical. HEART: S1, S2, no S3. No murmurs. No cyanosis or clubbing. No ascites. Pulses: Dorsalis pedis and posterior tibial pulses +1 to +2 bilaterally. ABDOMEN: Soft. Nontender. Bowel sounds active. No CVA tenderness. No mass felt. EXTREMITIES: No edema. Full range of motion of all extremities, equal. NEUROLOGIC: No focal deficit. Cranial nerves II through XII are grossly intact. No headache, no double vision or headache. SKIN: Not dry. Intact. Turgor - normal. LYMPHATIC: No palpable lymph nodes/no lymphedema. MUSCULOSKELETAL: Normal joints with no swelling. Muscle tone is normal. LABS: The patient had echocardiogram done which showed borderline LVH with normal valves, normal LV cavity and normal LV contractility. Stress echo showed no evidence of ischemia with METS level of 5 ASSESSMENT: 1. Chest pain, seems to be noncardiac with negative cardiac markers, negative EKG. 2. Status post Cholecystectomy RECOMMENDATIONS: 1. The patient take Ibuprofen once in a while and strongly advised to discontinue Non-steroidal anti-inflammatory 2. Counseling for obesity done 3. Risk factors for coronary artery disease discussed. 4. The patient's lipid profile is normal 5. Sedentary lifestyle also discussed with the patient CONDITION: Stable. LULÚ
--- NOTE | 2018-08-21 13:34 | PN ---
DATE OF SERVICE: 08/17/18 SUBJECTIVE: The patient was seen in the early evening hours and she was done eating. She did tell me that she had some epigastric distress after eating a large meal. There was no diaphoresis associated with the distress. Dr. Whitney had finished the stress test as well as the echocardiogram. She was told by Dr. Whitney that everything was okay except for a thickening of the heart muscle. I told her that we will prescribe the medication for the recurrent epigastric distress and see if this would help. I also mentioned that her blood test on admission was remarkable for the elevation of the liver enzymes, AST and ALT. I do not know the reason for this and it could very well be from a fatty liver secondary to the excessive amount of weight and/or hepatitis B or see what the repeat blood test tomorrow. The patient's BMI is 55.2. She is 302 lbs and 5'2". I did inform her that ahe needs to lose weight and since her cholesterol is also abnormal, the triglyceride as well as a very low high density lipoprotein. The patient was receptive to the idea and I did mention a diet that maybe easier, eating oats in the morning with no milk just a little bit of salt with an egg. Lunch would be a salad with meat of choice, diced, about 5 to 6 ozs and a diet dressing 20 calories. Same thing in the evening. No sodas including a diet soda since a diet soda will eventually make her gain weight instead of lose. I advised her that tea plus water, coffee is allowed. She should drink water before eating since it would produce an early satiety sensation. I did tell the patient that she might go home tomorrow if all things are well. TIME SPENT: More than 30 minutes. Plan and coordination of the patient's care discussed in the presence of nurse. LULÚ
--- NOTE | 2018-08-21 14:19 | HP ---
DATE OF SERVICE: 08/16/18 CHIEF COMPLAINT: Chest pain HISTORY OF PRESENT ILLNESS: Mrs. Hernandez is a pleasant 28 [address] patient of Dr. Collado who presented through the emergency department today after experiencing a bout of nausea, vomiting and chest pain, dizziness and upper abdominal discomfort and epigastric pain. She tells me that approximately 2:00 yesterday afternoon she began having episode of nausea and vomiting, chest discomfort and upper abdominal pain and significant dizziness. She tells me that she was vomiting food contents and then started dry heaving. She was finally able to lay down and go to sleep. She tells me that when she woke up this morning that the chest discomfort and nausea remained therefore she thought she might need to go and get it checked out. She decided to come to the emergency department to get this evaluated. The patient was placed on Telemetry monitoring in the emergency department at around 8:30 this morning. The rate was normal and the rhythm was sinus. There was no ectopy. EKG interpretation in the emergency department the rate was normal and rhythm was sinus. There was no ectopy. The time of the number 2 EKG according to ER records was done at 10:54am and there was no significant changes from the prior EKG. Dr. Tafoya did discuss the case with Dr. Vitale regarding the chest discomfort and the decision was made to admit the patient as a 24 hour observation for chest discomfort and a workup. PAST PERSONAL HISTORY: Hypercholesterolemia Episode of hypertension in the past, she is currently not on any medications History of enlarged liver diagnosed in August 2018 per patient History of diarrhea that lasted approximately 2-3 weeks. Elevated blood sugars in the past Depression Anxiety PCOS Cholecystectomy two cesareans Tubal Ligation FAMILY HISTORY: Diabetes mellitus type 2 SOCIAL HISTORY: Positive for vaping, denies any substance abuse and denies alcohol use. She is with two children. MEDICATIONS: Lexapro 20mg PO daily Buspar 5mg one to two times per day ALLERGIES: No known allergies REVIEW OF SYSTEMS: CONSTITUTIONAL: Denies any fever, chills, night sweat or weight changes [employer]OR OF RE[employer]UITMENT AND ADMISSIONS: No reports of headache, nasal drainage or sore throat. RESPIRATORY: No complaints of shortness of breath, cough or congestion. Denies any history of lung disease. CARDIOVASCULAR: She does complain of some chest pain, some epigastric discomfort. Denies any irregular rhythm. Denies any orthopnea. Denies any peripheral edema. She does report that on occasion she will have peripheral edema. GASTROINTESTINAL: She did have an acute episode of nausea and vomiting and upper abdominal discomfort yesterday. Denies any blood in the stool or changes in the stool constancy. According to the nurse records she did have some complaints of diarrhea as well. GENITOURINARY: No reports of dysuria or hematuria, nocturia or urinary incontinence or UTI symptoms. MUSCULOSKELETAL: No reports of muscle pain, joint redness, swelling or history of problems. NEUROLOGICAL: Did have an episode pretty significant dizziness yesterday with the nausea and vomiting. She reports that the room was spinning. No complaints of fatigue or any neurological deficit. ENDOCRINE: No history of diabetes mellitus type 2. She does report a history of elevated blood sugars in the past. No reports of thyroid disease. Denies any increase in thirst, urination, heat or cold intolerance. INTEGUMENT: No reports of rashes, lesions or skin changes. PSYCHIATRIC: No complaints of mood changes. She does complain of a history of anxiety and depression. PHYSICAL EXAMINATION: GENERAL: She is alert and oriented. She is in no acute distress. VITAL SIGNS: Temperature 98.2, pulse 87, blood pressure 139/94, respiratory rate 20, oxygen saturation 96%. Height 5'2, weight 295 pounds. HEAD: Normal cephalic. Atraumatic EYES: Pupils equal/reactive to light. Conjunctivae not pale. Sclerae not icteric. mucus membranes are moist. THROAT: No inflammation, tumors or exudate. NECK: No masses. No bruit. No tenderness. No rigidity. Supple. No thyromegaly. LUNGS: Clear. Breathing is stable. No acute distress. HEART: S1, S2. Regular rate and rhythm. No peripheral edema. No JVD. Audible and regular with good tones. No murmurs. ABDOMEN: Soft. Large. Bowel sounds are positive. No tenderness. No rebound tenderness. She does have some epigastric tenderness on exam. There is some tenderness to the end of the sternum. NEUROLOGICAL: Cranial nerves II through XII were grossly intact without any neurological deficit. SKIN: Warm and dry. No rashes, lesions or wounds. LABS/DIAGNOSTIC TESTING: WBC slightly elevated on admission of 11.25, hgb 14.2, hct 41.9, plt count 366, sodium 140.1, potassium 4.26, BUN 7.8, creatinine 0.62, calcium 8.81. Urine drug screen was negative. EKG was normal. Troponin was less than 0.012. Serum was negative. ASSESSMENT: 1. Chest pain, rule out cardiac etiology 2. Borderline hypertension 3. History of hyperlipidemia 4. Sternal pain on exam 5. History of depression/anxiety 6. Status post Cholecystectomy and Tubal Ligation PLAN: 1. Consultation made with Dr. Whitney 2. Stress testing per Dr. Whitney's recommendations 3. Will follow along with this patient closely 4. Further orders and recommendations per Dr. Vitale. TIME SPENT: GREATER THAN 65 MINUTES MTDD
== END 2018-08-18 12:38 | disposition home or self-care (01) ==
LOC: MEDSURG B 08:07 → ED 08:07 → MEDSURG B 11:24
PROVIDERS: ADMIT General Practice; ATTEND General Practice
DX: E66.9 Obesity, unspecified; R10.13 Epigastric pain; R05 Cough; F41.8 Other specified anxiety disorders; R06.02 Shortness of breath; I10 Essential (primary) hypertension; Z68.43 Body mass index [BMI] 50.0-59.9, adult; E78.5 Hyperlipidemia, unspecified